=== PATIENT | female | born 1985 | race Caucasian/White ===

== ENCOUNTER 2022-07-06 11:50 | Emergency (ER) | payer BC ==
[~2022-07-06] VITALS: Ht 172.7 cm; Wt 126.4 kg
[~2022-07-06 11:50] MED LIST: FERROUS SU325 MG/TAB PO; LORTAB 7.5/5001 TAB PO; NO HOME MEDICATIONS; ORTHO TRI-CYCLE1 TAB PO; PEPCID 20MG TAB20 MG PO; PHENERGAN 25 TA25 MG PO; PRENATAL VITAMI1 TA5 PO
[2022-07-06 11:59] VITALS: BP 143/90; TEMP 97.5
[2022-07-06] MEDS ORDERED: SYMJEPI0.3 MG/0.3 IJ (13:39)
[2022-07-06] MEDS ORDERED: MACRODANTIN100 PO (13:39)
[2022-07-06 14:23] VITALS: PULSE 88
== END 2022-07-06 14:57 | disposition home or self-care (01) ==
LOC: COL.ER 11:50
DX: L29.9 Pruritus, unspecified (principal); T36.1X5A Adverse effect of cephalosporins and other beta-lactam antibiotics, initial encounter; N39.0 Urinary tract infection, site not specified; Z88.0 Allergy status to penicillin
CPT/HCPCS: J1200; J7120